=== PATIENT | male | born 1990 | race Caucasian/White ===

== ENCOUNTER 2017-12-25 23:56 | Emergency (ER) | payer SELFPAY ==
[~2017-12-25] VITALS: Ht 172.7 cm; Wt 77.3 kg
[2017-12-26] MEDS: BACITRACIN 0.9 GM PACKET OINTMENT TP ONE (01:09)
[2017-12-26] MEDS: PERTUSS(ACELL),DIPH,TET VAC/PF 0.5 ML VIAL IM ONE (01:10)
[2017-12-26 04:54] VITALS: BP 140/80
== END 2017-12-26 04:55 | disposition home or self-care (01) ==
LOC: EMS 23:57
DX: S61.411A Laceration without foreign body of right hand, initial encounter (principal); V18.4XXA Pedal cycle driver injured in noncollision transport accident in traffic accident, initial encounter; Y93.89 Activity, other specified; Y92.89 Other specified places as the place of occurrence of the external cause; Y99.8 Other external cause status
CPT/HCPCS: 90471; 90715; 99284